=== PATIENT | female | born 1955 | race Caucasian/White ===

== ENCOUNTER 2017-05-28 08:41 | Emergency (ER) | payer BC, OTHER ==
[~2017-05-28] VITALS: Ht 157.5 cm; Wt 75.2 kg
[~2017-05-28 08:41] MED LIST: FISH1000 PO; METO50TA PO; TAB-TAB PO; WELL150T OR
[2017-05-28 08:51] VITALS: BP 162/78; PULSE 93; RESP 18; TEMP 98.2; O2SAT 96
[2017-05-28] MEDS ORDERED: METO50TA PO (11:23)
--- NOTE | 2017-05-28 11:55 | PD ---
HPI Chief Complaint: ENT Complaint Time Seen by Provider: 11:34 Travel History International Travel<30 days: No Contact w/Intl Traveler<30days: No Traveled to known affect area: No History of Present Illness HPI 61-year-old female with history of hypertension presents to the emergency room for evaluation of sore throat for the past 3 days. Patient's concerned for strep because she saw white exudates. States pain is severe and radiating into her ears. She has been coughing to try to clear her throat but denies any productive cough. No fever, chills, nausea, vomiting, or congestion. She has been taking Tylenol for pain. PFSH Past Medical History Anxiety: Yes Heart Rhythm Problems: No Cancer: No Cardiac Catheterization: No Cardiovascular Problems: Yes (ANGIOGRAM POSITIVE FOR LESION) High Cholesterol: No Congestive Heart Failure: No Diabetes: No Diminished Hearing: No Glaucoma: No Hepatitis: No Hiatal Hernia: No Hypertension: Yes Respiratory: No Immunizations Current: No Myocardial Infarction: No Thyroid Disease: No Tetanus Vaccination: > 5 Years Influenza Vaccination: No : 3 Para: 1 Miscarriage: 2 Past Surgical History Abdominal Surgery: Yes (PELVIC [id number]) Appendectomy: Yes Coronary Artery Bypass Graft: No Gynecologic Surgery: Yes (PELVIC ABCESS REMOVED) Hysterectomy: Yes Other Surgery: Yes (SINUS SURGERY) Family History Family Myocardial Infarction: Yes Social History Alcohol Use: Yes (DRINKS BEER DAILY) Tobacco Use: Yes (SMOKES WHEN DRINKING) Substance Use: No Allergies-Medications (Allergen,Severity, Reaction): Coded Allergies: No Known Allergies (Verified , 05/28/17) Reported Meds & Prescriptions Reported Meds & Active Scripts Active Magic Mouthwash Pediatric/Adult Liq (Lidocaine/Diphenhydr/Alum/Mg/Simeth) 60 Ml Susp 5 Ml SWISH-SWAL ACHS Each 5mL contains: Diphenydramine 4.5mg, Viscous Lidocaine 2% 10mg, Maalox Advanced Regular Strength 2.7ml Reported Metoprolol Tartrate 50 Mg Tab 50 Mg PO DAILY Review of Systems Except as stated in HPI: all other systems reviewed are Neg Physical Exam Narrative GENERAL: Well-nourished, well-developed female in no acute distress. Afebrile. Ambulatory. SKIN: Focused skin assessment warm/dry. HEAD: Normocephalic. EYES: No scleral icterus. No injection or drainage. ENT: Mucosa pink and moist. Moderate erythema without edema or exudates. No uvular edema. No uvular, palatal, or tonsillar deviation. Airway patent. Nasal turbinates appear normal without nasal blood, purulent drainage or septal hematoma. NECK: Supple, trachea midline. No JVD or lymphadenopathy. CARDIOVASCULAR: Regular rate and rhythm without murmurs, gallops, or rubs. RESPIRATORY: Breath sounds equal bilaterally. No accessory muscle use. No crackles, rales, wheezes, or rhonchi. Data Data Last Documented VS Vital Signs Date Time Temp Pulse Resp B/P (MAP) Pulse Ox O2 Delivery O2 Flow Rate FiO2 05/28/17 11:25 (106) 05/28/17 08:51 98.2 93 18 96 Room Air Orders Orders Group A Rapid Strep Screen (05/28/17 11:47) MDM Medical Decision Making Medical Screen Exam Complete: Yes Emergency Medical Condition: Yes Medical Record Reviewed: Yes Differential Diagnosis Surgical tenderness, viral pharyngitis, upper respiratory infection Narrative Course 61-year-old female presents to the emergency room for evaluation of sore throat the past 3 days. Pain radiates into the ears but she has no other symptoms. Patient's biggest concern is strep throat. She denies fever, chills, nausea, and vomiting. Vital signs stable. Patient resting comfortably with no increased work of breathing. Throat is moderately erythematous without significant exudate or edema. Rapid strep is negative. Likely viral pharyngitis. Patient reassured and discharged with Magic mouthwash and told to follow up with primary care physician or return for worsening symptoms. She understands and agrees to plan. Diagnosis Primary Impression: Acute viral pharyngitis Referrals: Primary Care Physician Additional Instructions: Rest and drink plenty of fluids. Magic mouthwash as directed, as needed for pain. Take ibuprofen with food as directed, as needed for pain and fever. Follow-up with a primary care physician. Return to the emergency room for worsening symptoms. Med/Other Pt SpecificInfo: Prescription(s) given Scripts [id number]-Alum-Simeth Liq (Magic Mouthwash Pediatric/Adult Liq) 60 Ml Susp 5 ML SWISH-SWAL ACHS for Mouth sores, #60 ML 0 Refills Each 5mL contains: Diphenydramine 4.5mg, Viscous Lidocaine 2% 10mg, Maalox Advanced Regular Strength 2.7ml Prov: Valentin Harley MD 05/28/17 Disposition: 01 DISCHARGE HOME Condition: Stable Kalie Trevino May 28, 2017 11:55
[2017-05-28] MEDS ORDERED: MAGICPED SWISH-SWAL (12:41)
== END 2017-05-28 13:54 | disposition home or self-care (01) ==
LOC: PHED 08:41
DX: J02.9 Acute pharyngitis, unspecified (principal); I10 Essential (primary) hypertension
CPT/HCPCS: 87081; 87880; 99283